=== PATIENT | female | born 1930 | race Caucasian/White ===

== ENCOUNTER 2017-03-05 07:52 | Emergency (ER) | payer MEDICARE, BC ==
[2017-03-05 07:55] VITALS: BP 111/63
--- NOTE | 2017-03-05 08:32 | EDM.PDOC ---
ED HPI GENERAL MEDICAL PROBLEM - General Chief Complaint: General Stated Complaint: vertigo Time Seen by Provider: 03/05/17 08:22 Source of Information: Reports: Patient - History of Present Illness INITIAL COMMENTS - FREE TEXT/NARRATIVE: Marguerite is an 86 year old female who presents to the ED with complaints of dizziness. She reports she was seen in the clinic by my colleague on Wednesday, two days ago, for the same complaint. Lab work (UA, CBC, CMP, troponin, CK), EKG , and head CT were all WNL at that time. She was given a script for meclizine. She reports she has not taken the meclizine since yesterday evening at 6 pm. She reports that her "dizziness" was worse yesterday than the day before, and is even worse this morning. She reports that she went to bed last evening around 9 pm and woke up at 4 am and could hardly get out of bed she was so "dizzy." She describes the dizziness as imbalance. She denies spinning of the room or surroundings. She reports she just feels "dizzy." At the time of ER presentation, she is not experiencing dizziness, unless she changes positions. She denies any syncope or LOC with the dizziness. She does report that she had a tube placed in her left ear back in November for middle ear effusion. She is scheduled to follow up with ENT next week. Onset Date: 03/03/17 Duration: Intermittent Location: Reports: Head Quality: Reports: Other (dizziness) Improves with: Reports: Medication (meclizine) Worsens with: Reports: Movement Associated Symptoms: Denies: Confusion, Chest Pain, Cough, cough w sputum, Diaphoresis, Fever/Chills, Headaches, Loss of Appetite, Malaise, Nausea/Vomiting , Rash, Seizure, Shortness of Breath, Syncope, Weakness Treatments SCRAPER BURRER: Reports: Other Medication(s) (meclizine) - Related Data Allergies Allergy/AdvReac Type Severity Reaction Status Date / Time cortisone Allergy Rash Verified 03/05/17 07:55 Home Meds: Home Meds Calcium Carbonate/Vitamin D3 [Calcium 600-Vit D3 800 Tab] 1 tab PO DAILY [History] Lisinopril 10 mg PO DAILY 11/15/15 [History] atorvaSTATin [Lipitor] 40 mg PO DAILY 11/15/15 [History] Bimatoprost 1 drop EYEBOTH BEDTIME 11/19/15 [History] Mycophenolate Mofetil 1,000 mg PO 1000,1600 11/19/15 [History] Meclizine [Antivert] 25 mg PO TID 03/05/17 [History] predniSONE [Prednisone] 1 tab PO DAILY 03/05/17 [History] Past Medical History HEENT History: Reports: Cataract, Other (See Below) Other HEENT History: history of fluid in left ear; has a tube in it. Cardiovascular History: Reports: High Cholesterol, Hypertension Musculoskeletal History: Reports: Fracture - Past Surgical History HEENT Surgical History: Reports: Cataract Surgery Female Surgical History: Reports: Hysterectomy Musculoskeletal Surgical History: Reports: Hip Replacement Social & Family History - Family History Family Medical History: Noncontributory Cardiac: Reports: Hypertension - Tobacco Use Smoking Status *Q: Never Smoker - Caffeine Use Caffeine Use: Reports: Coffee - Recreational Drug Use Recreational Drug Use: No - Living Situation & Occupation Living situation: Reports: , Alone ED ROS GENERAL - Review of Systems Review Of Systems: ROS reveals no pertinent complaints other than HPI. Constitutional: Denies: Fever, Chills, Weakness, Fatigue HEENT: Reports: Ear Pain, Vertigo. Denies: Dental Pain, Ear Discharge, Eye Pain , Hearing Loss, Sinus Problem, Throat Pain, Throat Swelling, Vision Change Respiratory: Denies: Shortness of Breath, Wheezing, Pleuritic Chest Pain, Cough , Sputum Cardiovascular: Reports: Lightheadedness. Denies: Chest Pain, Dyspnea on Exertion, Edema, Palpitations, Syncope Endocrine: Denies: Fatigue GI/Abdominal: Reports: No Symptoms. Denies: Abdominal Pain, Diarrhea, Decreased Appetite, Nausea, Vomiting : Denies: Dysuria, Frequency, Urgency Musculoskeletal: Reports: No Symptoms. Denies: Neck Pain Skin: Reports: No Symptoms Neurological: Reports: Dizziness, Difficulty Walking (due to dizziness). Denies : Confusion, Headache, Numbness, Paresthesia, Pre-Existing Deficit, Seizure, Syncope, Tingling, Tremors, Trouble Speaking, Weakness, Change in Speech, Gait Disturbance Psychiatric: Reports: No Symptoms Hematologic/Lymphatic: Reports: No Symptoms Immunologic: Reports: No Symptoms ED EXAM, GENERAL - Physical Exam Exam: See Below Exam Limited By: No Limitations General Appearance: Alert, WD/WN, Mild Distress Eye Exam: Bilateral Eye: EOMI, Normal Fundi, Normal Inspection, PERRL Ears: Normal External Exam, Normal Canal, Hearing Grossly Normal, Normal TMs, Other (tube to left ear) Ear Exam: Left Ear: Foreign Body (PE tube), Bilateral Ear: Auricle Normal, Canal Normal, TM normal Nose: Normal Inspection, Normal Mucosa, No Blood Throat/Mouth: Normal Inspection, Normal Lips, Normal Teeth, Normal Gums, Normal Oropharynx, Normal Voice, No Airway Compromise Head: Atraumatic, Normocephalic Neck: Normal Inspection, Supple, Non-Tender, Full Range of Motion Respiratory/Chest: No Respiratory Distress, Lungs Clear, Normal Breath Sounds, No Accessory Muscle Use, Chest Non-Tender Cardiovascular: Normal Peripheral Pulses, Regular Rate, Rhythm, No Edema, No Gallop, No JVD, No Murmur, No Rub GI/Abdominal: Normal Bowel Sounds, Soft, Non-Tender, No Organomegaly, No Distention, No Abnormal Bruit, No Mass Back Exam: Normal Inspection, Full Range of Motion, NT Extremities: Normal Inspection, Normal Range of Motion, Non-Tender, Normal Capillary Refill, No Pedal Edema Neurological: Alert, Oriented, CN II-XII Intact, Normal Cognition, Normal Reflexes, No Motor/Sensory Deficits, Abnormal Gait (imbalance), Other ( apprehensive with movements due to imbalance) Psychiatric: Normal Affect, Normal Mood Skin Exam: Warm, Dry, Intact, Normal Color, No Rash Lymphatic: No Adenopathy Course - Vital Signs Last Recorded V/S: Last Vital Signs Temp 98.4 F 03/05/17 07:53 Pulse 89 03/05/17 07:53 Resp 16 03/05/17 07:53 BP 111/63 03/05/17 07:53 Pulse Ox 98 03/05/17 07:53 Orthostatic Blood Pressure [ 153/74 Standing] Orthostatic Blood Pressure [ 124/71 Sitting] Orthostatic Blood Pressure [ 121/68 Supine] - Orders/Labs/Meds Orders: Active Orders 24 hr Category Date Time Status Orthostatic Vital Signs [RC] ASDIRECTED Care 03/05/17 08:37 Active Labs: Laboratory Tests 03/05/17 03/05/17 Range/Units 08:50 08:50 WBC 8.9 (5.0-10.0) 10^3/uL RBC 4.04 (4.00-5.50) 10^6/uL Hgb 12.6 (12.0-16.0) g/dL Hct 40.6 (37.0-47.0) % MCV 100.5 H (82.0-94.0) fL MCH 31.2 (27.0-32.0) pg MCHC 31.0 L (33.0-38.0) g/dL RDW Coeff of Carley 14.0 (11.0-15.0) % Plt Count 283 (150-400) 10^3/uL Neut % (Auto) 80.6 (35-85) % Lymph % (Auto) 12.5 (10-55) % [place] % (Auto) 6.4 (0-16) % Eos % (Auto) 0.3 (0-5) % Baso % (Auto) 0.2 (0-3) % Neut # (Auto) 7.20 H (1.80-7.00) 10^3/uL Lymph # (Auto) 1.12 (1.00-4.80) 10^3/uL [place] # (Auto) 0.57 (0.00-0.80) 10^3/uL Eos # (Auto) 0.03 (0.00-0.45) 10^3/uL Baso # (Auto) 0.02 10^3/uL Sodium 142 (136-145) mEq/L Potassium 4.2 (3.5-5.0) mEq/L Chloride 107 H (98-106) mEq/L Carbon Dioxide 27 (21-32) mmol/L BUN 19 H (7-18) mg/dL Creatinine 0.8 (0.6-1.0) mg/dL Est Cr Clr Drug Dosing 40.66 mL/min Estimated GFR (MDRD) > 60 (>=60) mL/min Glucose 111 H (75-99) mg/dL Calcium 9.8 (8.4-10.1) mg/dL Troponin I < 0.017 (0.00-0.06) ng/mL C-Reactive Protein < 0.2 L (0.2-0.8) mg/dL Meds: Medications Discontinued Medications Generic Name Dose Route Start Last Admin Trade Name Freq PRN Reason Stop Dose Admin Meclizine HCl 25 mg 03/05/17 08:46 03/05/17 08:49 Antivert PO 03/05/17 08:47 25 mg ONETIME ONE Administration - Re-Assessments/Exams Free Text/Narrative Re-Assessment/Exam: Discussed lab results and previous head CT with patient and daughter. Labs all stable. Head CT negative. Orthostatic BPs normal. Dizziness improved and resolved during ER stay while lying still. Continues to have some imbalance with ambulation. Departure - Departure Time of Disposition: 09:12 Disposition: Home, Self-Care 01 Condition: Fair Clinical Impression: Benign positional vertigo Qualifiers: Laterality: left Qualified Code(s): H81.12 - Benign paroxysmal vertigo, left ear - Discharge Information Instructions: Vertigo, Benign Positional Vertigo Referrals: Radha Lloyd RESEARCH ADVISOR [Emergency Provider] - Forms: ED Department Discharge Additional Instructions: Push fluids Meclizine every 8 hours until symptoms improve Use caution when changing positions Go over to Physical Therapy for evaluation and treatment Follow up as scheduled with ENT next week Follow up in clinic the following week if symptoms are not improving. May need MRI if no improvement. Seek medical care for worsening of symptoms or any additional concerns - My Orders Last 24 Hours: My Active Orders 03/05/17 08:37 Orthostatic Vital Signs [RC] ASDIRECTED - Assessment/Plan Last 24 Hours: My Active Orders 03/05/17 08:37 Orthostatic Vital Signs [RC] ASDIRECTED
[2017-03-05] MEDS ORDERED: Meclizine 12.5 MG Tab PO ONE (08:46)
[2017-03-05 09:10] LABS: CHLORIDE,CL 107 mEq/L (98-106); SODIUM,NA 142 mEq/L (136-145)
== END 2017-03-05 09:25 | disposition home or self-care (01) ==
LOC: CC.ED 07:52
DX: H81.12 Benign paroxysmal vertigo, left ear (principal); E78.00 Pure hypercholesterolemia, unspecified; I10 Essential (primary) hypertension; Z88.8 Allergy status to other drugs, medicaments and biological substances; Z79.899 Other long term (current) drug therapy
CPT/HCPCS: 36415; 80048; 84484; 85025; 86140; 99283; A9270

== ENCOUNTER 2018-10-16 15:34 | Emergency (ER) | payer MEDICARE, BC ==
[2018-10-16 15:44] VITALS: BP 144/53
--- NOTE | 2018-10-16 16:02 | EDM.PDOC ---
ED HPI GENERAL MEDICAL PROBLEM - General Stated Complaint: side pain post fall this a.m. Time Seen by Provider: 10/16/18 15:43 Source of Information: Reports: Patient History Limitations: Reports: No Limitations - History of Present Illness INITIAL COMMENTS - FREE TEXT/NARRATIVE: This patient is an 88 year old female that presents to the ER with family. Patient reports that this morning at 0530am she got up from bed without issues. She got her walker and began walking. Patient reports she got a few steps and and fell to the floor. Patient reports that she landed on her left side and complains of left anterior/lateral chest pain that is worse with palpation and movement/ambulation. Patient reports that she is uncertain why she fell. She reports that she was unable to get up form the floor, she called her son who came over to the house, picked her up and put her in the chair. Patient reports that when he picked her up form the floor, she got lightheaded briefly, then resolved once in the chair. Patient reports that today, she has been able to ambulate with her walker without difficulty, other than having pain to the left chest lower. She reports that she does have a history of vertigo. She also reports having history of blood in her left ear canal with fluid, tubes 3xs. She reports this is chronic and has seen ENT for this. The patient denies hitting her head, loc, n, v, vision changes, cardiac chest pain, shortness of breath, palpitations, abd pain, urinary/bowel changes. She denies any other pain complaints other than the left anterior/lateral lower chest area. Due to the patient unable to provide me with a reason for her fall that was obviously mechanical, I will order labs, ekg, and urine, as well as the chest/rib xray. The patient reports that she has no complaint of lightheadedness in the ER, and that resolved quickly after sittingin chair after fall early this morning. Patient reports she has history of myasthenia gravis. Onset: Today Onset Date: 10/16/18 Onset Time: 05:30 Location: Reports: Chest Front/Back Body Image: 1 - pain, mildly tender. Quality: Reports: Ache Severity: Mild Improves with: Reports: Immobilization Worsens with: Reports: Movement Associated Symptoms: Denies: Confusion, Chest Pain, Cough, cough w sputum, Diaphoresis, Fever/Chills, Headaches, Loss of Appetite, Malaise, Nausea/Vomiting , Rash, Seizure, Shortness of Breath, Syncope, Weakness Treatments RELAY ASSOCIATE: Reports: Acetaminophen Left Trunk Pain Score (Numeric/FACES): 5 - Related Data Allergies Allergy/AdvReac Type Severity Reaction Status Date / Time cortisone Allergy Rash Verified 10/16/18 15:45 Home Meds: Home Meds atorvaSTATin [Lipitor] 40 mg PO DAILY 11/15/15 [History] Bimatoprost 1 drop EYEBOTH BEDTIME 11/19/15 [History] Mycophenolate Mofetil 1,000 mg PO 1000,1600 11/19/15 [History] Aspirin [Halfprin] 81 mg PO DAILY 10/16/18 [History] Calcium Carbonate [Calcium] 1,500 mg PO DAILY 10/16/18 [History] Cholecalciferol (Vitamin D3) [Vitamin D3] 1,000 unit PO DAILY 10/16/18 [History] Lisinopril 2 tab PO DAILY 10/16/18 [History] Vitamin B Complex 1 tab PO DAILY 10/16/18 [History] amLODIPine Besylate [Amlodipine Besylate] 1 tab PO DAILY 10/16/18 [History] predniSONE [Prednisone] 2 tab PO DAILY 10/16/18 [History] Past Medical History HEENT History: Reports: Cataract, Other (See Below) Other HEENT History: history of fluid in left ear; has a tube in it. Cardiovascular History: Reports: High Cholesterol, Hypertension Musculoskeletal History: Reports: Fracture - Past Surgical History HEENT Surgical History: Reports: Cataract Surgery Female Surgical History: Reports: Hysterectomy Musculoskeletal Surgical History: Reports: Hip Replacement Social & Family History - Family History Family Medical History: Noncontributory Cardiac: Reports: Hypertension - Caffeine Use Caffeine Use: Reports: Coffee - Living Situation & Occupation Living situation: Reports: , Alone ED ROS GENERAL - Review of Systems Review Of Systems: See Below Constitutional: Reports: No Symptoms HEENT: Reports: No Symptoms Respiratory: Reports: No Symptoms. Denies: Shortness of Breath, Wheezing, Cough , Sputum Cardiovascular: Reports: Lightheadedness (briefly after fall). Denies: Chest Pain (noncardiac), Dyspnea on Exertion, Edema, Palpitations, Syncope Endocrine: Reports: No Symptoms GI/Abdominal: Reports: No Symptoms. Denies: Abdominal Pain, Black Stool, Bloody Stool, Constipation, Diarrhea, Nausea, Vomiting : Reports: No Symptoms Musculoskeletal: Reports: Other (left atnerior/lateral chest) Skin: Reports: No Symptoms Neurological: Reports: No Symptoms Psychiatric: Reports: No Symptoms Hematologic/Lymphatic: Reports: No Symptoms Immunologic: Reports: No Symptoms ED EXAM, GENERAL - Physical Exam Exam: See Below Exam Limited By: No Limitations General Appearance: Alert, WD/WN, No Apparent Distress Eye Exam: Bilateral Eye: EOMI, Normal Inspection, PERRL, Other (watery, chronic. ) Ears: Normal External Exam Ear Exam: Right Ear: Canal Normal, Left Ear: Bleeding (dry blood: chronic per patient seen by ENT recently), Bilateral Ear: Auricle Normal, TM normal Nose: Normal Inspection, Normal Mucosa, No Blood Throat/Mouth: Normal Inspection, Normal Lips, Normal Teeth, Normal Gums, Normal Oropharynx, Normal Voice, No Airway Compromise Head: Atraumatic, Normocephalic. No: Facial Swelling, Facial Tenderness, Sinus Tenderness Neck: Normal Inspection, Supple, Non-Tender, Full Range of Motion. No: Tender Lateral, Tender Midline Respiratory/Chest: No Respiratory Distress, Lungs Clear, Normal Breath Sounds, No Accessory Muscle Use, Other (No flail chest. Mild tenderness left anterior/ lateral chest. ). No: Respiratory Distress, Decreased Breath Sounds, Crackles, Rales, Rhonchi, Wheezing, Stridor, Pleural Rub, Accessory Muscle Use, Retractions, Splinting, Prolonged Expiration Cardiovascular: Normal Peripheral Pulses, Regular Rate, Rhythm, No Edema, No Gallop, No JVD, No Murmur, No Rub Peripheral Pulses: 2+: Carotid (L), Carotid (R), Radial (L), Radial (R), Posterior Tibial (L), Posterior Tibial (R) GI/Abdominal: Normal Bowel Sounds, Soft, Non-Tender, No Organomegaly, No Distention, No Abnormal Bruit, No Mass, Pelvis Stable (Female) Exam: Deferred Rectal (Female) Exam: Deferred Back Exam: Normal Inspection, Full Range of Motion. No: Decreased Range of Motion, Muscle Spasm, Paraspinal Tenderness, Vertebral Tenderness Extremities: Normal Inspection, Normal Range of Motion, Non-Tender, No Pedal Edema, Normal Capillary Refill Neurological: Alert, Oriented, CN II-XII Intact, Normal Cognition, Normal Gait ( with walker, baseline. ), No Motor/Sensory Deficits, Other (Alert and Oriented x4. GCS 15, Stroke Score 0. ). No: Confused, Disoriented, Slow to Respond, Unresponsive, Memory Loss Remote Events, Memory Loss Recent Events, Abnormal Gait, Sensory/Motor Deficit Psychiatric: Normal Affect, Normal Mood Skin Exam: Warm, Dry, Intact, Normal Color, No Rash Lymphatic: No Adenopathy EKG INTERPRETATION EKG Date: 10/16/18 Time: 16:15 Rhythm: NSR Rate (Beats/Min): 70 P-Wave: Present QRS: Normal ST-T: Normal QT: Normal Comparison: No Change Course - Vital Signs Last Recorded V/S: Last Vital Signs Temp 98.9 F 10/16/18 15:36 Pulse 83 10/16/18 15:36 Resp 18 10/16/18 15:36 BP 144/53 H 10/16/18 15:36 Pulse Ox 98 10/16/18 15:36 - Orders/Labs/Meds Orders: Active Orders 24 hr Category Date Time Status Ribs 2V w Chest Lt [CR] Stat Exams 10/16/18 15:44 Taken Labs: Laboratory Tests 10/16/18 10/16/18 10/16/18 Range/Units 15:55 15:55 16:43 WBC 14.2 H (5.0-10.0) 10^3/uL RBC 3.73 L (4.00-5.50) 10^6/uL Hgb 11.7 L (12.0-16.0) g/dL Hct 36.7 L (37.0-47.0) % MCV 98.4 H (82.0-94.0) fL MCH 31.4 (27.0-32.0) pg MCHC 31.9 L (33.0-38.0) g/dL RDW Coeff of Carley 13.6 (11.0-15.0) % Plt Count 275 (150-400) 10^3/uL Neut % (Auto) 82.6 (35-85) % Lymph % (Auto) 10.3 (10-55) % [place] % (Auto) 6.8 (0-16) % Eos % (Auto) 0.1 (0-5) % Baso % (Auto) 0.2 (0-3) % Neut # (Auto) 11.71 H (1.80-7.00) 10^3/uL Lymph # (Auto) 1.46 (1.00-4.80) 10^3/uL [place] # (Auto) 0.96 H (0.00-0.80) 10^3/uL Eos # (Auto) 0.01 (0.00-0.45) 10^3/uL Baso # (Auto) 0.03 10^3/uL Sodium 144 (136-145) mEq/L Potassium 4.4 (3.5-5.0) mEq/L Chloride 107 H (98-106) mEq/L Carbon Dioxide 29 (21-32) mmol/L BUN 19 H (7-18) mg/dL Creatinine 1.1 H (0.6-1.0) mg/dL Est Cr Clr Drug Dosing 28.50 mL/min Estimated GFR (MDRD) 47 L (>=60) mL/min Glucose 112 H (75-99) mg/dL Calcium 10.3 H (8.4-10.1) mg/dL Troponin I 0.020 (0.00-0.06) ng/mL Urine Color Yellow (YELLOW) Urine Appearance Clear (CLEAR) Urine pH 6.0 (4.5-8.0) Ur Specific [place] 1.020 (1.003-1.020) Urine Protein 100 H (NEGATIVE) mg/dL Urine Glucose (UA) Negative (NEGATIVE) mg/dL Urine Ketones Negative (NEGATIVE) mg/dL Urine Occult Blood Trace-intact H (NEGATIVE) Urine Nitrite Negative (NEGATIVE) Urine Bilirubin Negative (NEGATIVE) Urine Urobilinogen 0.2 (0.2-1.0) EU/dL Ur Leukocyte Esterase Negative (NEGATIVE) Urine RBC 0-5 (0-5) /HPF Urine WBC Not seen (0-5) /HPF Ur Squamous Epith Cells Moderate H (NOT SEEN) /HPF Urine Bacteria Few H (NOT SEEN) /HPF - Radiology Interpretation Free Text/Narrative:: CXR/left ribs: no pneumothorax, no hemothorax. no infiltrates. Possible left anterior rib fx. Will let radiologist read final report. Will not stop patient discharge, s treatment the same if 1 rib fx vs contusion. - Re-Assessments/Exams Free Text/Narrative Re-Assessment/Exam: 10/16/18 16:25 Patient wbc elevated. Patient has been on steroids chronicaly for about 3 years without wbc elevation in previous labs. Therefore, I do not believe this is the cause. Will await the CMP and UA results. 10/16/18 16:48 Her urine is negative of infection. Her Troponin is 0.2 in normal range with a sinus rhythm ekg. Her wbc is elevated at 14, patient on steroids and recent fall earlier today. No evidence on exam or complaints of infection. Denies congestion, drainage, cough, urinary/bowel symptoms, fever. Her CR is 1.1, just mildly elevated and her BUN mildly elevated at 19. This is just barely out of normal range, patient is able to drink water on her own without difficulty, currently drinking. Patient has been ambulatory in the department without difficulty with walker. I will discharge the patient home. She and family are educated to followup with her PCP on Wednesday for close followup due to injury and follow of her wbc. The agree and understand. Possible her fall is related to her myasthenia gravis. Departure - Departure Time of Disposition: 16:52 Disposition: Home, Self-Care 01 Condition: Fair Clinical Impression: Fall Qualifiers: Encounter type: initial encounter Qualified Code(s): W19.XXXA - Unspecified fall, initial encounter Rib fracture Qualifiers: Encounter type: initial encounter Rib fracture type: single rib Fracture type: closed Laterality: left Qualified Code(s): S22.32XA - Fracture of one rib, left side, initial encounter for closed fracture - Discharge Information *PRESCRIPTION DRUG MONITORING PROGRAM REVIEWED*: Not Applicable *COPY OF PRESCRIPTION DRUG MONITORING REPORT IN PATIENT RACHAEL: Not Applicable Instructions: Rib Fracture, [id number] Referrals: PCP,Unknown [Primary Care Provider] - Additional Instructions: Followup with your primary care provider Wednesday for recheck Return to the ER for worsening of condition or any emergent concerns such as shortness of breath, increased chest pain, fever, or other concerns Incentive spirometer ever 2 hours while awake to prevent pneumonia - My Orders Last 24 Hours: My Active Orders 10/16/18 15:44 Ribs 2V w Chest Lt [CR] Stat - Assessment/Plan Last 24 Hours: My Active Orders 10/16/18 15:44 Ribs 2V w Chest Lt [CR] Stat Plan: PLEASE SEE RN NOTE FOR PFSH.
== END 2018-10-16 17:10 | disposition home or self-care (01) ==
LOC: CC.ED 15:34
DX: S22.32XA Fracture of one rib, left side, initial encounter for closed fracture (principal); I10 Essential (primary) hypertension; E78.00 Pure hypercholesterolemia, unspecified; Z88.8 Allergy status to other drugs, medicaments and biological substances; Z79.82 Long term (current) use of aspirin; Z79.899 Other long term (current) drug therapy; W10.8XXA Fall (on) (from) other stairs and steps, initial encounter
CPT/HCPCS: 36415; 71101-LT; 80048; 81001; 84484; 85025; 93005; 99284-25

== ENCOUNTER 2020-11-05 13:48 | Observation (INO) | payer MEDICARE, BC ==
[2020-11-05 14:18] LABS: CHLORIDE,CL 107 mEq/L (98-106); SODIUM,NA 145 mEq/L (136-145)
[2020-11-05] MEDS ORDERED: Sodium Chloride 0.9% 10 ML Syringe FLUSH PRN (15:54)
[2020-11-05] MEDS ORDERED: Ondansetron 4 MG Tab.DIS PO PRN (15:54)
[2020-11-05] MEDS ORDERED: Acetaminophen/HYDROcodone 325-5 MG Tab PO PRN (15:54)
[2020-11-05] MEDS ORDERED: Acetaminophen 325 MG Tab PO PRN (15:54)
[2020-11-05] MEDS ORDERED: Polyethylene Glycol 3350 Powder 17 GM Packet PO PRN (15:54)
[2020-11-05] MEDS ORDERED: Gabapentin 300 MG Cap **PTOM PO PRN (15:57)
[2020-11-05] MEDS ORDERED: MYCOPHENOLATE 500 MG PO SCH (16:30)
[2020-11-05] MEDS: MYCOPHENOLATE 500 MG PO SCH (16:38)
[2020-11-05] MEDS: Aspirin 81 MG Tab.EC PO SCH (19:40)
[2020-11-05] MEDS: LUMIGAN 0.01% EYEBOTH SCH (19:40)
[2020-11-05] MEDS ORDERED: BIMATOPROST EYEBOTH SCH (20:00)
[2020-11-05] MEDS ORDERED: Non-Formulary Medication 1 Each (Atorvastatin [Lipitor] 40 MG Tablet) PO SCH (20:00)
[2020-11-06] MEDS: VITAMIN B COMPLEX PO SCH (07:46)
[2020-11-06] MEDS: PREDNISONE 1 MG PO SCH (07:46)
[2020-11-06] MEDS: Lisinopril 20 MG Tab *PTOM PO SCH (07:46)
[2020-11-06] MEDS: Cholecalciferol (Vitamin D3) 25 MCG Tab PO SCH (07:50)
[2020-11-06] MEDS: Calcium Carbonate/Vitamin D3 1250 MG-5 MCG Tab PO SCH (07:50)
[2020-11-06] MEDS ORDERED: ALPHAGAN 0.1% EYELF SCH (08:00)
[2020-11-06] MEDS ORDERED: Non-Formulary Medication 1 Each (Brimonidine [Alphagan P 0.1% Ophth Soln] 10 ML Bottle) EYELF SCH (08:00)
[2020-11-06] MEDS ORDERED: Non-Formulary Medication 1 Each (Amlodipine Besylate [Amlodipine Besylate] 5 MG Tablet) PO SCH (08:00)
--- NOTE | 2020-11-06 08:40 | PCM.PN ---
- General Info Date of Service: 11/06/20 Admission Dx/Problem (Free Text): Postherpetic Neuralgia Weakness Functional Status: Reports: Pain Controlled, Tolerating Diet, Ambulating - Review of Systems General: Reports: Weakness, Fatigue, Malaise. Denies: Fever HEENT: Denies: Ear Pain, Sore Throat Pulmonary: Denies: Shortness of Breath, Cough Cardiovascular: Denies: Chest Pain, Lightheadedness Gastrointestinal: Denies: Abdominal Pain, Nausea, Vomiting Genitourinary: Reports: No Symptoms Musculoskeletal: Reports: No Symptoms Skin: Reports: Other (scabbed over area to right buttock. Lesions to lower leg) Neurological: Reports: Weakness - Patient Data Vitals - Most Recent: Last Vital Signs Temp 97.8 F 11/06/20 03:45 Pulse 88 11/06/20 03:45 Resp 16 11/06/20 03:45 BP 156/56 H 11/06/20 07:46 Pulse Ox 98 11/06/20 03:45 Weight - Most Recent: 113 lb 3.2 oz Lab Results Last 24 Hours: Laboratory Results - last 24 hr 11/05/20 11/05/20 11/05/20 Range/Units 13:52 13:52 13:52 WBC 6.2 (4.0-11.0) 10^3/uL RBC 3.69 L (4.00-5.50) x10^6/uL Hgb 11.6 L (12.0-16.0) g/dL Hct 36.6 L (37.0-47.0) % MCV 99.2 H (83.0-97.0) fL MCH 31.4 (27.0-32.0) pg MCHC 31.7 L (32.0-36.0) g/dL RDW Coeff of Carley 13.8 (11.0-15.0) % Plt Count 301 (150-400) 10^3/uL Immature Gran % (Auto) 0.0 (0.0-4.9) % Neut % (Auto) 66.5 (41-71) % Lymph % (Auto) 21.4 L (24-44) % [place] % (Auto) 10.0 (0-10) % Eos % (Auto) 1.6 (0-6) % Baso % (Auto) 0.5 (0-1) % Neut # (Auto) 4.10 (1.80-8.00) x10^3/uL Lymph # (Auto) 1.32 (0.60-5.00) 10^3/uL [place] # (Auto) 0.62 (0.00-1.50) 10^3/uL Eos # (Auto) 0.10 (0.00-1.50) 10^3/uL Baso # (Auto) 0.03 (0.00-0.50) 10^3/uL Immature Gran # (Auto) 0.00 (0.00-0.49) 10^3/uL Sodium 145 (136-145) mEq/L Potassium 4.8 (3.5-5.0) mEq/L Chloride 107 H (98-106) mEq/L Carbon Dioxide 29 (21-32) mmol/L BUN 17 (7-18) mg/dL Creatinine 0.7 (0.6-1.0) mg/dL Est Cr Clr Drug Dosing TNP Estimated GFR (MDRD) > 60 (>=60) mL/min Glucose 99 (75-99) mg/dL Calcium 9.9 (8.4-10.1) mg/dL Total Bilirubin 0.3 (0.0-1.0) mg/dL AST 19 (15-37) U/L ALT 19 (12-78) U/L Alkaline Phosphatase 55 (46-116) U/L Troponin I High Sens 8.7 (<=51) pg/mL C-Reactive Protein < 0.2 L (0.2-0.8) mg/dL Total Protein 7.1 (6.4-8.2) g/dL Albumin 3.9 (3.4-5.0) g/dL TSH, Ultra Sensitive 2.60 (0.36-5.60) uIU/mL Urine Color Yellow (YELLOW) Urine Appearance Clear (CLEAR) Urine pH 6.5 (4.5-8.0) Ur Specific [place] 1.020 (1.003-1.020) Urine Protein Negative (NEGATIVE) mg/dL Urine Glucose (UA) Negative (NEGATIVE) mg/dL Urine Ketones Negative (NEGATIVE) mg/dL Urine Occult Blood Negative (NEGATIVE) Urine Nitrite Negative (NEGATIVE) Urine Bilirubin Negative (NEGATIVE) Urine Urobilinogen 0.2 (0.2-1.0) EU/dL Ur Leukocyte Esterase Negative (NEGATIVE) Med Orders - Current: Current Medications Acetaminophen (Acetaminophen 325 Mg Tab) 650 mg PO Q4H PRN PRN Reason: Pain (Mild 1-3)/fever Hydrocodone Bitart/Acetaminophen (Acetaminophen/Hydrocodone 325-5 Mg Tab) 1 tab PO Q4H PRN PRN Reason: Pain (moderate 4-6) Aspirin (Aspirin 81 Mg Tab.Ec) 81 mg PO BEDTIME [facility] Last Admin: 11/05/20 19:40 Dose: 81 mg Documented by: Calcium Carbonate (Calcium Carbonate/Vitamin D3 1250 Mg-5 Mcg Tab) 1 tab PO DAILY [facility] Last Admin: 11/06/20 07:50 Dose: 1 tab Documented by: Cholecalciferol (Cholecalciferol (Vitamin D3) 25 Mcg Tab) 25 mcg PO DAILY [facility] Last Admin: 11/06/20 07:50 Dose: 25 mcg Documented by: Enoxaparin Sodium (Enoxaparin 40 Mg/0.4 Ml Syringe) 40 mg SUBCUT Q24H [facility] Gabapentin (Gabapentin 300 Mg Cap Ptom) 300 mg PO TID PRN PRN Reason: Pain Last Admin: 11/05/20 19:41 Dose: 300 mg Documented by: Lisinopril (Lisinopril 20 Mg Tab *Ptom) 40 mg PO DAILY [facility] Last Admin: 11/06/20 07:46 Dose: 40 mg Documented by: Non-Formulary Medication (Atorvastatin [Lipitor]) 40 mg PO BEDTIME [facility] Amlodipine 5 Mg Tab (Ptom) 0 mg PO DAILY [facility] Last Admin: 11/06/20 07:46 Dose: 5 mg Documented by: Lumigan 0.01% Ophth (Soln Ptom) 0 drop EYEBOTH BEDTIME [facility] Last Admin: 11/05/20 19:40 Dose: 1 drop Documented by: Mycophenolate 500 Mg (Tab Ptom) 0 mg PO DAILY@1000,1600 [facility] Last Admin: 11/05/20 16:38 Dose: 1,000 mg Documented by: Alphagan 0.1% Ophthalmic Soln Ptom 0 drop EYELF 2000 [facility] Ondansetron HCl (Ondansetron 4 Mg Tab.Dis) 4 mg PO Q4H PRN PRN Reason: nausea, able to take PO Polyethylene Glycol (Polyethylene Glycol 3350 Powder 17 Gm Packet) 17 gm PO DAILY PRN PRN Reason: Constipation Prednisone (Prednisone 1 Mg Tab Ptom) 1 mg PO DAILY [facility] Last Admin: 11/06/20 07:46 Dose: 1 mg Documented by: Sodium Chloride (Sodium Chloride 0.9% 10 Ml Syringe) 10 ml FLUSH ASDIRECTED PRN PRN Reason: Keep Vein Open Vitamin B Complex (Vitamin B Complex Cap Ptom) 1 each PO DAILY [facility] Last Admin: 11/06/20 07:46 Dose: 1 each Documented by: Discontinued Medications Non-Formulary Medication (Amlodipine Besylate [Amlodipine Besylate]) 1 tab PO DAILY [facility] Non-Formulary Medication (Bimatoprost [Bimatoprost]) 1 drop EYEBOTH BEDTIME [facility] Non-Formulary Medication (Brimonidine [Alphagan P 0.1% Ophth Soln]) 1 drop EYELF DAILY [facility] Non-Formulary Medication (Mycophenolate Mofetil [Mycophenolate Mofetil]) 1,000 mg PO 1000,1600 [facility] Last Admin: 11/05/20 17:30 Dose: Not Given Documented by: Mycophenolate 500 Mg (Tab Ptom) 1,000 mg PO DAILY@1000,1600 [facility] Alphagan 0.1% Ophthalmic Soln Ptom 0 drop EYELF QAM [facility] - Exam General: Alert, Oriented, Cooperative HEENT: Mucous Membr. Moist/[place] Neck: Supple Lungs: Clear to Auscultation, Normal Respiratory Effort Cardiovascular: Regular Rate, Regular Rhythm GI/Abdominal Exam: Normal Bowel Sounds, Soft, Non-Tender Extremities: Normal Inspection, No Pedal Edema Skin: Other (Has dry scabbed lesions to right lower leg/thigh) Neurological: No New Focal Deficit, Other (gait is unsteady) - Patient Data Lab Results Last 24 hrs: Laboratory Results - last 24 hr 11/05/20 11/05/20 11/05/20 Range/Units 13:52 13:52 13:52 WBC 6.2 (4.0-11.0) 10^3/uL RBC 3.69 L (4.00-5.50) x10^6/uL Hgb 11.6 L (12.0-16.0) g/dL Hct 36.6 L (37.0-47.0) % MCV 99.2 H (83.0-97.0) fL MCH 31.4 (27.0-32.0) pg MCHC 31.7 L (32.0-36.0) g/dL RDW Coeff of Carley 13.8 (11.0-15.0) % Plt Count 301 (150-400) 10^3/uL Immature Gran % (Auto) 0.0 (0.0-4.9) % Neut % (Auto) 66.5 (41-71) % Lymph % (Auto) 21.4 L (24-44) % [place] % (Auto) 10.0 (0-10) % Eos % (Auto) 1.6 (0-6) % Baso % (Auto) 0.5 (0-1) % Neut # (Auto) 4.10 (1.80-8.00) x10^3/uL Lymph # (Auto) 1.32 (0.60-5.00) 10^3/uL [place] # (Auto) 0.62 (0.00-1.50) 10^3/uL Eos # (Auto) 0.10 (0.00-1.50) 10^3/uL Baso # (Auto) 0.03 (0.00-0.50) 10^3/uL Immature Gran # (Auto) 0.00 (0.00-0.49) 10^3/uL Sodium 145 (136-145) mEq/L Potassium 4.8 (3.5-5.0) mEq/L Chloride 107 H (98-106) mEq/L Carbon Dioxide 29 (21-32) mmol/L BUN 17 (7-18) mg/dL Creatinine 0.7 (0.6-1.0) mg/dL Est Cr Clr Drug Dosing TNP Estimated GFR (MDRD) > 60 (>=60) mL/min Glucose 99 (75-99) mg/dL Calcium 9.9 (8.4-10.1) mg/dL Total Bilirubin 0.3 (0.0-1.0) mg/dL AST 19 (15-37) U/L ALT 19 (12-78) U/L Alkaline Phosphatase 55 (46-116) U/L Troponin I High Sens 8.7 (<=51) pg/mL C-Reactive Protein < 0.2 L (0.2-0.8) mg/dL Total Protein 7.1 (6.4-8.2) g/dL Albumin 3.9 (3.4-5.0) g/dL TSH, Ultra Sensitive 2.60 (0.36-5.60) uIU/mL Urine Color Yellow (YELLOW) Urine Appearance Clear (CLEAR) Urine pH 6.5 (4.5-8.0) Ur Specific [place] 1.020 (1.003-1.020) Urine Protein Negative (NEGATIVE) mg/dL Urine Glucose (UA) Negative (NEGATIVE) mg/dL Urine Ketones Negative (NEGATIVE) mg/dL Urine Occult Blood Negative (NEGATIVE) Urine Nitrite Negative (NEGATIVE) Urine Bilirubin Negative (NEGATIVE) Urine Urobilinogen 0.2 (0.2-1.0) EU/dL Ur Leukocyte Esterase Negative (NEGATIVE) Result Diagrams: 11/05/20 13:52 11/05/20 13:52 Sepsis Event Note - Evaluation Sepsis Screening Result: No Definite Risk - Focused Exam Vital Signs: Vital Signs Temp Pulse Resp BP BP Pulse Ox 11/06/20 07:46 156/56 H 11/06/20 03:45 97.8 F 88 16 162/61 H 98 11/05/20 23:30 98.4 F 78 16 142/61 H 96 - Problem List & Annotations (1) Weakness SNOMED Code(s): 14914035 Code(s): R53.1 - WEAKNESS Status: Acute Priority: High Current Visit: Yes - Problem List Review Problem List Initiated/Reviewed/Updated: Yes - Assessment Assessment:: Weakness - Plan Plan:: Patient stable. Pain controlled. Will continue with PT for strengthening. Social service consult for discharge plan.
[2020-11-06] MEDS: MYCOPHENOLATE 500 MG PO SCH ×2 (10:09→16:23)
[2020-11-06] MEDS: Enoxaparin 40 MG/0.4 ML Syringe SUBCUT SCH (12:42)
[2020-11-06] MEDS: LUMIGAN 0.01% EYEBOTH SCH (19:37)
[2020-11-06] MEDS: ALPHAGAN 0.1% EYELF SCH (19:40)
[2020-11-06] MEDS: Aspirin 81 MG Tab.EC PO SCH (19:43)
[2020-11-07] MEDS: Cholecalciferol (Vitamin D3) 25 MCG Tab PO SCH (07:56)
[2020-11-07] MEDS: Calcium Carbonate/Vitamin D3 1250 MG-5 MCG Tab PO SCH (07:56)
[2020-11-07] MEDS: Lisinopril 20 MG Tab *PTOM PO SCH (07:57)
[2020-11-07] MEDS: PREDNISONE 1 MG PO SCH (07:58)
[2020-11-07] MEDS: VITAMIN B COMPLEX PO SCH (07:58)
[2020-11-07] MEDS: MYCOPHENOLATE 500 MG PO SCH ×2 (10:30→17:18)
[2020-11-07] MEDS: Enoxaparin 40 MG/0.4 ML Syringe SUBCUT SCH (12:30)
[2020-11-07] MEDS: Aspirin 81 MG Tab.EC PO SCH (19:21)
[2020-11-07] MEDS: ALPHAGAN 0.1% EYELF SCH (19:22)
[2020-11-07] MEDS: LUMIGAN 0.01% EYEBOTH SCH (19:23)
[2020-11-08] MEDS: Calcium Carbonate/Vitamin D3 1250 MG-5 MCG Tab PO SCH (08:30)
[2020-11-08] MEDS: Cholecalciferol (Vitamin D3) 25 MCG Tab PO SCH (08:30)
[2020-11-08] MEDS ORDERED: LORazepam 2 MG/ML Syringe IVPUSH ONE (08:30)
[2020-11-08] MEDS: PREDNISONE 1 MG PO SCH (08:34)
[2020-11-08] MEDS: Lisinopril 20 MG Tab *PTOM PO SCH (08:34)
[2020-11-08] MEDS: VITAMIN B COMPLEX PO SCH (08:35)
[2020-11-08] MEDS: MYCOPHENOLATE 500 MG PO SCH (09:56)
[2020-11-08 11:12] VITALS: BP 155/88; PULSE 77
--- NOTE | 2020-11-08 12:05 | PN ---
DATE: 11/07/2020 S: The patient continues for the most part to do well other than her ability to walk. She still feels weak in her lower extremities. Has not had any new or changing vital signs. She has remained afebrile and has not had any change in her O2 sats. She denies any back pain. Yesterday, Ale did see her in my absence and her urine which was finally obtained was negative. O: GENERAL: The patient is pleasant and cooperative. She does not appear in any distress, definitely suffers from some confusion today. HEENT: Grossly benign. NECK: Supple. Veins appear flat. LUNGS: Lung sounds are clear. CARDIAC: Tones appear regular. ABDOMEN: Soft. EXTREMITIES: No peripheral edema is seen. ASSESSMENT: 1. WEAKNESS. 2. RECURRENT FALLS. 3. EPISODIC CONFUSION. 4. HYPERTENSION. 5. STATUS POST SHINGLES. P: Just because of the patient's confusion at times, we are going to get an MRI of her head tomorrow morning. She is set apparently for custodial placement as family feel they cannot care for her at home anymore and we will monitor and await results. KEILA/LINNEA /[id number]
--- NOTE | 2020-11-08 12:06 | DISCH ---
ADMISSION DIAGNOSES: 1. Weakness. 2. Status post shingles. 3. Hypertension. 4. Hyperlipidemia. DISCHARGE DIAGNOSIS: 1. WEAKNESS. 2. STATUS POST SHINGLES. 3. HYPERTENSION. 4. HYPERLIPIDEMIA. HISTORY: The patient is an 89-year-old who presented to the office with complaints of weakness. Family had brought her in even though she does most of her healthcare in [place], they tried to get her into the hospital there, but apparently they could not find an acute reason. She has been getting progressively weaker after she had shingles in her right leg extending down towards the foot. Ultimately, she was seen by us. We put her under observation due to her weakness. At the time of her admit, her lab work was reassuring and stable. She had no signs of UTI. Her CRP was 0.2. HOSPITAL COURSE: Marguerite did well while here. We did have PT see her for strengthening and we will continue that in the halfway where she is going. She did not have any acute changes. Because of her history of some dizziness and the fact that she has had some recurrent falls and her legs are weak, we did get a MRI of her head, which is pending. That was done on the morning of her discharge. She did not have any acute changes during her stay. Her vital signs were stable, she was afebrile. Family elected to have her placed at [place] for at least short term for strengthening after her shingles, and we will continue to monitor this closely. COMPLICATIONS: During her stay were none. CONSULTATIONS: None. DISPOSITION: Transfer to [facility] for strengthening and rehab. KEILA/LINNEA /[id number]
== END 2020-11-08 10:00 ==
LOC: CC.MS 13:48 → CC.FCMC 13:48 → CC.MS 15:19 → UNDOADMOB 15:19 → CC.MS 15:54
PROVIDERS: ADMIT Family Medicine; ATTEND Family Medicine
DX: R53.1 Weakness (principal); I10 Essential (primary) hypertension; B02.29 Other postherpetic nervous system involvement; E78.00 Pure hypercholesterolemia, unspecified; Z88.8 Allergy status to other drugs, medicaments and biological substances; Z79.899 Other long term (current) drug therapy; Z79.82 Long term (current) use of aspirin; Z98.890 Other specified postprocedural states
CPT/HCPCS: 36415; 70551; 71046; 80053; 81003; 84443; 84484; 85025; 86140; 93005; 96372; 96374; 97110; 97161; A9270; G0378; J1650; J2060; J7512; 93010; 99217; 99220; 99225